=== PATIENT | female | born 1995 | race Caucasian/White ===

== ENCOUNTER 2021-10-28 17:25 | Emergency (ER) | payer MEDICAID ==
[2021-10-28 17:36] VITALS: BP 125/85; PULSE 76
== END 2021-10-28 18:31 | disposition home or self-care (01) ==
LOC: CC.ED 17:25
DX: S93.401A Sprain of unspecified ligament of right ankle, initial encounter (principal); E11.9 Type 2 diabetes mellitus without complications; Z79.84 Long term (current) use of oral hypoglycemic drugs; Z88.8 Allergy status to other drugs, medicaments and biological substances; X50.1XXA Overexertion from prolonged static or awkward postures, initial encounter
CPT/HCPCS: 73610-RT; 99283

== ENCOUNTER 2021-11-20 15:41 | Emergency (ER) | payer OTHER, BC, MEDICAID ==
[2021-11-20 15:55] VITALS: BP 124/67; PULSE 68
== END 2021-11-20 16:40 | disposition home or self-care (01) ==
LOC: CC.ED 15:41
DX: S60.221A Contusion of right hand, initial encounter (principal); E11.9 Type 2 diabetes mellitus without complications; F17.210 Nicotine dependence, cigarettes, uncomplicated; Z88.2 Allergy status to sulfonamides; Z79.899 Other long term (current) drug therapy; Z79.84 Long term (current) use of oral hypoglycemic drugs; W22.8XXA Striking against or struck by other objects, initial encounter
CPT/HCPCS: 73130-RT; 99283